=== PATIENT | female | born 1990 | race Caucasian/White ===

== ENCOUNTER 2017-12-09 11:30 | Inpatient (IN) | payer OTHER ==
[2017-12-09] MEDS: morphine 4 MG/ML VIAL IV (12:57)
[2017-12-09] MEDS: ONDANSETRON 4 MG INJ IV (12:57)
[2017-12-09] MEDS: SOD CHLORIDE 0.9% 1,000 ML IV (12:57)
[2017-12-09 13:09] LABS: ADD MAN DIFF? NO
[2017-12-09 13:10] LABS: BASOPHIL # 0.1 10^3/ul (0.0-0.1); BASOPHILS % 0.6 % (0.0-2.0); EOSINOPHILS # 0.4 10^3/ul (0.0-0.5); EOSINOPHILS % 4.3 % (0.0-7.0); HEMOGLOBIN 12.9 g/dl (12.0-16.0); LYMPHOCYTES # 2.8 10^3/ul (0.8-2.9); LYMPHOCYTES % 31.7 % (15.0-51.0); MEAN CORPUSCULAR HEMOGLOBIN 29.3 pg (29.0-33.0); MEAN CORPUSCULAR HGB CONC 33.1 g/dl (32.0-37.0); MEAN CORPUSCULAR VOLUME 88.4 fl (82.0-101.0); MEAN PLATELET VOLUME 10.6 fl (7.4-10.4); MONOCYTE # 0.5 10^3/ul (0.3-0.9); MONOCYTES % 5.4 % (0.0-11.0); NEUTROPHILS % 57.5 % (39.0-77.0); PLATELET COUNT 271 10^3/UL (140-415); RED BLOOD COUNT 4.41 10^6/ul (4.20-5.40); RED CELL DISTRIBUTION WIDTH 13.2 % (11.5-14.5)
[2017-12-09 13:10] LABS: WHITE BLOOD COUNT 8.7 10^3/ul (4.8-10.8)
[2017-12-09 13:30] LABS: ALANINE AMINOTRANSFERASE 25 IU/L (13-69); ALBUMIN 4.5 g/dl (3.3-4.9); ALBUMIN/GLOBULIN RATIO 1.15; ALKALINE PHOSPHATASE 84 IU/L (42-121); ANION GAP 16 (8-16); ASPARTATE AMINO TRANSFERASE 25 IU/L (15-46); BILIRUBIN,INDIRECT 0.1 mg/dl (0-1.1); BILIRUBIN,TOTAL 0.1 mg/dl (0.2-1.3); BLOOD UREA NITROGEN 10 mg/dl (7-20); CALCIUM 9.3 mg/dl (8.4-10.2); CARBON DIOXIDE 26 mmol/L (21-31); CHLORIDE 108 mmol/L (97-110); CREATININE 0.54 mg/dl (0.44-1.00); GLUCOSE 99 mg/dl (70-220); LIPASE 86 U/L (23-300); POTASSIUM 4.1 mmol/L (3.5-5.1); SODIUM 146 mmol/L (135-144); TOTAL PROTEIN 8.4 g/dl (6.1-8.1)
[2017-12-09] MEDS: PIPER-TAZO 3.375 GM IV (PMX) 100 ML IVPB (15:45)
[2017-12-09 16:05] LABS: ADD UMIC YES; UR ASCORBIC ACID NEGATIVE (NEGATIVE); UR BILIRUBIN (Dip) NEGATIVE (NEGATIVE); UR BLOOD (Dip) 3+ mg/dL (NEGATIVE); UR CLARITY SLIGHTLY CLOUDY (CLEAR); UR COLOR RED (YELLOW); UR GLUCOSE (Dip) NEGATIVE (NEGATIVE); UR KETONES (Dip) NEGATIVE (NEGATIVE); UR LEUKOCYTE ESTERASE (Dip) NEGATIVE Leu/ul (NEGATIVE); UR MUCUS FEW /HPF (NONE SEEN); UR NITRITE (Dip) NEGATIVE (NEGATIVE); UR RBC > 182 /HPF (0-5); UR SPECIFIC GRAVITY (Dip) 1.013 (1.003-1.030); UR TOTAL PROTEIN (Dip) 2+ mg/dl (NEGATIVE); UR UROBILINOGEN (Dip) NEGATIVE (NEGATIVE); UR WBC 25 /HPF (0-5)
[2017-12-09] MEDS ORDERED: LEVOFLOXACIN 500MG/D5W (PMX) 100 ML IVPB (17:30)
[2017-12-09] MEDS ORDERED: METOCLOPRAMIDE 10 MG INJ IV (17:30)
[2017-12-09] MEDS ORDERED: morphine 2 MG INJ IV (17:30)
[2017-12-09] MEDS ORDERED: DOCUSATE SODIUM 100 MG CAP PO (17:30)
[2017-12-09] MEDS ORDERED: NACL 0.9% 3 ML SYG IV (17:30)
[2017-12-09] MEDS: LEVOFLOXACIN 500MG/D5W (PMX) 100 ML IVPB (17:36)
[2017-12-09 17:48] LABS: INR 0.94; PROTIME 12.7 Sec (11.9-14.9)
[2017-12-09] MEDS ORDERED: metroNIDAZOLE 500 MG/NS (PMX) 100 ML IVPB (22:00)
[2017-12-09] MEDS: metroNIDAZOLE 500 MG/NS (PMX) 100 ML IVPB (22:43)
[2017-12-10 05:39] LABS: ADD MAN DIFF? NO
[2017-12-10 05:43] LABS: WHITE BLOOD COUNT 6.8 10^3/ul (4.8-10.8)
[2017-12-10 05:43] LABS: BASOPHILS % 0.4 % (0.0-2.0); EOSINOPHILS # 0.4 10^3/ul (0.0-0.5); EOSINOPHILS % 5.8 % (0.0-7.0); HEMATOCRIT 37.4 % (37.0-47.0); HEMOGLOBIN 11.9 g/dl (12.0-16.0); LYMPHOCYTES # 2.3 10^3/ul (0.8-2.9); LYMPHOCYTES % 33.5 % (15.0-51.0); MEAN CORPUSCULAR HEMOGLOBIN 28.1 pg (29.0-33.0); MEAN CORPUSCULAR HGB CONC 31.8 g/dl (32.0-37.0); MEAN CORPUSCULAR VOLUME 88.4 fl (82.0-101.0); MEAN PLATELET VOLUME 10.6 fl (7.4-10.4); MONOCYTE # 0.4 10^3/ul (0.3-0.9); MONOCYTES % 6.3 % (0.0-11.0); NEUTROPHIL # 3.7 10^3/ul (1.6-7.5); NEUTROPHILS % 53.9 % (39.0-77.0); PLATELET COUNT 240 10^3/UL (140-415); RED BLOOD COUNT 4.23 10^6/ul (4.20-5.40); RED CELL DISTRIBUTION WIDTH 13.2 % (11.5-14.5)
[2017-12-10] MEDS: PANTOPRAZOLE 40 MG INJ IV (05:43)
[2017-12-10] MEDS: metroNIDAZOLE 500 MG/NS (PMX) 100 ML IVPB ×3 (05:44→22:14)
[2017-12-10 06:10] LABS: ALANINE AMINOTRANSFERASE 26 IU/L (13-69); ALBUMIN 3.4 g/dl (3.3-4.9); ALBUMIN/GLOBULIN RATIO 0.97; ALKALINE PHOSPHATASE 65 IU/L (42-121); ANION GAP 15 (8-16); ASPARTATE AMINO TRANSFERASE 16 IU/L (15-46); BLOOD UREA NITROGEN 13 mg/dl (7-20); CALCIUM 8.3 mg/dl (8.4-10.2); CARBON DIOXIDE 25 mmol/L (21-31); CHLORIDE 109 mmol/L (97-110); CREATININE 0.61 mg/dl (0.44-1.00); GLUCOSE 102 mg/dl (70-220); PHOSPHORUS 4.1 mg/dl (2.5-4.9); POTASSIUM 3.6 mmol/L (3.5-5.1); SODIUM 145 mmol/L (135-144); TOTAL PROTEIN 6.9 g/dl (6.1-8.1)
[2017-12-10] MEDS ORDERED: LEVOFLOXACIN 500MG/D5W (PMX) 100 ML IVPB (09:00)
[2017-12-10] MEDS ORDERED: GLYCOPYRROLATE 0.4 MG INJ (10:59)
[2017-12-10] MEDS ORDERED: ROCURONIUM 50 MG INJ (10:59)
[2017-12-10] MEDS ORDERED: PROPOFOL 20 ML (10:59)
[2017-12-10] MEDS ORDERED: CEFAZOLIN 1 GM INJ (10:59)
[2017-12-10] MEDS ORDERED: NEOSTIGMINE 3 MG/3 ML SYRINGE (10:59)
[2017-12-10] MEDS ORDERED: MIDAZOLAM 1 MG/ML 2 ML INJ (11:00)
[2017-12-10] MEDS ORDERED: FENTAnyl 50 MCG/ML VIAL (11:00)
[2017-12-10] MEDS ORDERED: ONDANSETRON 4 MG INJ (11:00)
[2017-12-10] MEDS ORDERED: DEXAMETHASONE 4 MG/ML 1 ML INJ (11:01)
[2017-12-10] MEDS ORDERED: ALBUTEROL 0.083% (NEB) 2.5 MG/3 ML AMP HHN (12:00)
[2017-12-10] MEDS ORDERED: HYDROmorphONE (0.2 MG/ML) 10ML SYG IV ×2 (12:00)
[2017-12-10] MEDS ORDERED: FENTAnyl 50 MCG/ML VIAL IV ×3 (12:00)
[2017-12-10] MEDS ORDERED: IPRATROPIUM (NEB) 0.5 MG/2.5 ML AMP HHN (12:00)
[2017-12-10] MEDS ORDERED: ONDANSETRON 4 MG INJ IV (12:00)
[2017-12-10] MEDS ORDERED: EPHEDrine SULFATE 50 MG/5 ML SYG IV (12:00)
[2017-12-10] MEDS ORDERED: DIPHENHYDRAMINE 50 MG INJ IV (12:00)
[2017-12-10] MEDS ORDERED: hydrALAzine 20 MG INJ IV (12:00)
[2017-12-10] MEDS ORDERED: MIDAZOLAM 1 MG/ML 2 ML INJ IV (12:00)
[2017-12-10] MEDS: BUPIVACAINE 0.5%/EPI (SDV) 30 ML INJ INJ (12:00)
[2017-12-10] MEDS ORDERED: MEPERIDINE 25 MG INJ IV (12:00)
[2017-12-10] MEDS ORDERED: TRIMETHOBENZAMIDE 100 MG/ML VIAL IM (12:00)
[2017-12-10] MEDS ORDERED: OXYCODONE/ACETAMINOPHEN (5/325) TAB PO ×2 (12:00)
[2017-12-10] MEDS ORDERED: LABETALOL HCL 20MG INJ IV (12:00)
[2017-12-10] MEDS ORDERED: SUGAMMADEX SODIUM 200 MG/2 ML VIAL IV (12:53)
[2017-12-10] MEDS ORDERED: KETOROLAC 30 MG INJ (12:53)
[2017-12-10] MEDS: HYDROmorphONE (0.2 MG/ML) 10ML SYG IV (13:29)
[2017-12-10] MEDS ORDERED: HYDROCODONE/APAP (5/325) TAB PO (14:30)
[2017-12-10] MEDS: LEVOFLOXACIN 500MG/D5W (PMX) 100 ML IVPB (17:02)
[2017-12-10] MEDS: HYDROCODONE/APAP (5/325) TAB PO (17:09)
[2017-12-10] MEDS: HYDROmorphONE 0.5 MG/0.5 ML SYG IV ×2 (19:10→22:33)
[2017-12-10] MEDS: ONDANSETRON 4 MG INJ IV (19:10)
[2017-12-10] MEDS: FAMOTIDINE 20 MG TAB PO (20:46)
[2017-12-11 05:47] LABS: ADD MAN DIFF? NO
[2017-12-11] MEDS: PANTOPRAZOLE 40 MG INJ IV (05:57)
[2017-12-11 05:58] LABS: WHITE BLOOD COUNT 8.6 10^3/ul (4.8-10.8)
[2017-12-11 05:58] LABS: BASOPHILS % 0.1 % (0.0-2.0); HEMATOCRIT 36.3 % (37.0-47.0); HEMOGLOBIN 11.9 g/dl (12.0-16.0); LYMPHOCYTES # 1.3 10^3/ul (0.8-2.9); LYMPHOCYTES % 14.6 % (15.0-51.0); MEAN CORPUSCULAR HEMOGLOBIN 28.8 pg (29.0-33.0); MEAN CORPUSCULAR HGB CONC 32.8 g/dl (32.0-37.0); MEAN CORPUSCULAR VOLUME 87.9 fl (82.0-101.0); MEAN PLATELET VOLUME 10.9 fl (7.4-10.4); MONOCYTE # 0.4 10^3/ul (0.3-0.9); MONOCYTES % 4.2 % (0.0-11.0); NEUTROPHIL # 6.9 10^3/ul (1.6-7.5); NEUTROPHILS % 80.8 % (39.0-77.0); PLATELET COUNT 259 10^3/UL (140-415); RED BLOOD COUNT 4.13 10^6/ul (4.20-5.40); RED CELL DISTRIBUTION WIDTH 13.2 % (11.5-14.5)
[2017-12-11] MEDS: metroNIDAZOLE 500 MG/NS (PMX) 100 ML IVPB ×2 (05:58→13:30)
[2017-12-11] MEDS: ONDANSETRON 4 MG INJ IV (06:03)
[2017-12-11] MEDS: HYDROCODONE/APAP (5/325) TAB PO ×2 (06:03→12:19)
[2017-12-11 06:11] LABS: INR 1.09; PROTIME 14.2 Sec (11.9-14.9); PT RATIO 1.1
[2017-12-11 06:12] LABS: PARTIAL THROMBOPLASTIN TIME 28.3 Sec (25.0-35.0)
[2017-12-11 06:13] LABS: ALANINE AMINOTRANSFERASE 35 IU/L (13-69); ALBUMIN 3.8 g/dl (3.3-4.9); ALBUMIN/GLOBULIN RATIO 1.15; ALKALINE PHOSPHATASE 59 IU/L (42-121); ANION GAP 16 (8-16); ASPARTATE AMINO TRANSFERASE 31 IU/L (15-46); BILIRUBIN,INDIRECT 0.2 mg/dl (0-1.1); BILIRUBIN,TOTAL 0.2 mg/dl (0.2-1.3); BLOOD UREA NITROGEN 7 mg/dl (7-20); CALCIUM 8.8 mg/dl (8.4-10.2); CARBON DIOXIDE 24 mmol/L (21-31); CHLORIDE 107 mmol/L (97-110); CREATININE 0.64 mg/dl (0.44-1.00); GLUCOSE 111 mg/dl (70-220); MAGNESIUM 1.8 mg/dl (1.7-2.5); PHOSPHORUS 4.1 mg/dl (2.5-4.9); SODIUM 143 mmol/L (135-144); TOTAL PROTEIN 7.1 g/dl (6.1-8.1)
[2017-12-11] MEDS: ENOXAPARIN 40 MG/0.4 ML SYG SC (09:45)
[2017-12-11] MEDS: LEVOFLOXACIN 500MG/D5W (PMX) 100 ML IVPB (17:30)
[2017-12-11] MEDS: ACETAMINOPHEN 325 MG TAB PO (18:41)
[2017-12-12] MEDS ORDERED: DOCUSATE SODIUM 100 MG CAP PO (09:00)
[2017-12-12] MEDS ORDERED: BISACODYL 10 MG SUPP PR ×2 (12:00→14:30)
[2017-12-12] MEDS ORDERED: NA PHOSPHATE/BIPHOS 133 ML ENEMA PR ×2 (18:00)
== END 2017-12-11 20:00 | disposition home or self-care (01) | DRG 418 ==
LOC: MS1 12-10 23:20 → FTE 11:30 → MS3 16:48
PROC: 0FT44ZZ Resection of Gallbladder, Percutaneous Endoscopic Approach (ICD-10-PCS; principal; 2017-12-10 10:30)
DX: K80.00 Calculus of gallbladder with acute cholecystitis without obstruction (principal); E87.0 Hyperosmolality and hypernatremia; D64.9 Anemia, unspecified
CPT/HCPCS: 71045; 76705; 80053; 81001; 81025; 83690; 83735; 84100; 85025; 85610; 85730; 88304; 93005

== ENCOUNTER 2017-12-22 10:15 | Outpatient (CLI) | payer OTHER | END 2017-12-22 15:29 | disposition home or self-care (01) | LOC: HPC 10:15 | DX: K80.10 Calculus of gallbladder with chronic cholecystitis without obstruction (principal) | CPT/HCPCS: Z7500 ==